=== PATIENT | male | born 1975 | race Caucasian/White ===

== ENCOUNTER 2017-04-01 18:44 | Emergency (ER) | payer MEDICARE ==
[2017-04-01 19:04] VITALS: BP 141/79
[2017-04-01] MEDS ORDERED: SULFAMETHOXAZOLE/TRIMETHOPRIM 1 EACH TABLET PO ONE ×2 (19:35→19:51)
--- NOTE | 2017-04-01 19:56 | ED Physician Documentation ---
General Adult - HISTORIAN Historian: patient - HPI Stated Complaint: sinus pressure, drainage, lt ear pain Chief Complaint: General Adult Onset: hours Timing: still present Severity: moderate Further Comments: yes (Pt is a 41 yo male with sinus pressure and ear pain x 2 days. No fever, n/v.) - ROS CONST: no problems EYES/ENT: other (sinus pressure, ear pain) GI/: none MS/SKIN/LYMPH: none - PAST HX Past History: other (Depression, HLD, HTN, chronic back pain, ) Surgeries/Procedures: other (ortho surgery) Allergies/Adverse Reactions: Allergies Allergy/AdvReac Type Severity Reaction Status Date / Time Penicillins Allergy Intermediate Rash Verified 04/01/17 19:05 Home Medications: Ambulatory Orders Medication Instructions Recorded Atorvastatin Calcium [Atorvastatin 20 gal PO HS 04/01/17 Calcium] Cholecalciferol [Vitamin D-3] 1,000 units PO D 04/01/17 Fluoxetine HCl [Prozac] 40 mg PO D 04/01/17 Gabapentin [Gabapentin] 300 mg PO BID 04/01/17 Glyburide [Glyburide] 5 mg PO BID 04/01/17 Lisinopril [Lisinopril] 40 mg PO D 04/01/17 Metformin HCl [Metformin HCl ER] 1,000 mg PO BID 04/01/17 Naproxen [Naprosyn] 500 mg PO BID 04/01/17 Sulfamethoxazole/Trimethoprim 1 each PO DAILY #20 tablet 04/01/17 [Bactrim Ds] Tizanidine HCl [Zanaflex] 6 mg PO TID 04/01/17 Tramadol HCl [Ultram] 50 mg PO Q4 PRN 04/01/17 - SOCIAL HX Smoking History: non-smoker - FAMILY HX Family History: No - VITAL SIGNS Vital Signs: Vital Signs Temp Pulse Resp BP Pulse Ox 98.1 F 90 16 141/79 99 04/01/17 18:44 04/01/17 18:44 04/01/17 18:44 04/01/17 18:44 04/01/17 18:44 - REVIEWED ASSESSMENTS Nursing Assessment Reviewed: Yes Vitals Reviewed: Yes Progress - Progress Progress: Rx Bactrim DS po bid x 10 days. Nasal washes prn. ED Results Lab/Radiology - Orders Orders: ED Orders Category Date Time Status Sulfamethoxazole/Trimethoprim [Bactrim Ds] Med 04/01/17 19:35 Discontinued 1 each PO .STK-MED ONE General Adult Physical Exam - PHYSICAL EXAM GENERAL APPEARANCE: mild distress EENT: eye inspection normal, pharynx normal, TM's nml, other (sinus pressure) NECK: normal inspection, supple RESPIRATORY: no resp distress, chest non-tender, breath sounds normal CVS: reg rate & rhythm, heart sounds normal, equal pulses ABDOMEN: soft, no organomegaly, normal bowel sounds BACK: normal inspection, no CVA tenderness SKIN: warm/dry, normal color EXTREMITIES: non-tender, normal range of motion, no edema NEURO: oriented X3, motor nml, sensation nml Discharge Clincal Impression: sinusitis Prescriptions: Sulfamethoxazole/Trimethoprim [Bactrim Ds] 1 each PO DAILY #20 tablet Referrals: Billy Tran DO [Primary Care Provider] - Home Medications: Ambulatory Orders Atorvastatin Calcium [Atorvastatin Calcium] 20 gal PO HS 04/01/17 Cholecalciferol [Vitamin D-3] 1,000 units PO D 04/01/17 Fluoxetine HCl [Prozac] 40 mg PO D 04/01/17 Gabapentin [Gabapentin] 300 mg PO BID 04/01/17 Glyburide [Glyburide] 5 mg PO BID 04/01/17 Lisinopril [Lisinopril] 40 mg PO D 04/01/17 Metformin HCl [Metformin HCl ER] 1,000 mg PO BID 04/01/17 Naproxen [Naprosyn] 500 mg PO BID 04/01/17 Sulfamethoxazole/Trimethoprim [Bactrim Ds] 1 each PO DAILY #20 tablet 04/01/17 Tizanidine HCl [Zanaflex] 6 mg PO TID 04/01/17 Tramadol HCl [Ultram] 50 mg PO Q4 PRN 04/01/17 Condition: Good Disposition: 01 HOME, SELF-CARE Decision to Admit: NO Decision Time: 19:46
== END 2017-04-01 19:57 | disposition home or self-care (01) ==
LOC: ED 18:44
DX: J32.9 Chronic sinusitis, unspecified (principal)
CPT/HCPCS: A9270 ×2

== ENCOUNTER 2017-04-03 23:55 | Emergency (ER) | payer MEDICARE | END 2017-04-04 01:25 | LOC: ED 23:55 | DX: Z02.89 Encounter for other administrative examinations (principal) ==